=== PATIENT | female | born 1980 | race American Indian/Alaskan Native ===

== ENCOUNTER 2016-11-16 20:36 | Emergency (ER) | payer BC, MEDICAID ==
[2016-11-16 21:42] VITALS: BP 103/65
[2016-11-16 22:22] LABS: Alanine Aminotransferase 11 units/L (7-56); Albumin 4.3 g/dL (3.9-5); Albumin/Globulin Ratio 1.4 %; Alkaline Phosphatase 77 units/L (35-129); Anion Gap 18 mmol/L; BUN/Creatinine Ratio 26.66; Blood Urea Nitrogen 16 mg/dL (7-17); Calcium 8.9 mg/dL (8.4-10.2); Carbon Dioxide 23 mmol/L (22-30); Chloride 105.5 mmol/L (98-107); Glucose 107 mg/dL (65-100); Lipase 40 units/L (13-60); Potassium 3.9 mmol/L (3.6-5.0); Sodium 143 mmol/L (137-145); Total Protein 7.3 g/dL (6.3-8.2)
[2016-11-16 22:41] LABS: Eosinophils % (Auto) 1.8 % (0.0-4.3); Hematocrit 36.1 % (30.3-42.9); Hemoglobin 11.9 gm/dl (10.1-14.3); Mean Corpuscular HGB Conc 33 % (30-34); Mean Corpuscular Hemoglobin 30 pg (28-32); Mean Corpuscular Volume 91 fl (79-97); Platelet Count 289 K/mm3 (140-440); Red Blood Count 3.99 M/mm3 (3.65-5.03); Red Cell Distribution Width 12.6 % (13.2-15.2); White Blood Count 6.3 K/mm3 (4.5-11.0)
[2016-11-17 00:29] LABS: Bilirubin,Urine NEG (Negative); Blood,Urine NEG (Negative); Ketones,Urine TR mg/dL (Negative); Leukocyte Esterase,Urine NEG (Negative); Mucus,Urine FEW /HPF; Nitrite,Urine NEG (Negative); Protein,Urine <15 mg/dL mg/dL (Negative); Urobilinogen,Urine < 2.0 mg/dL (<2.0)
--- NOTE | 2016-11-19 21:48 | ED Elopement Review ---
ED Pt Elopement review - Results review Lab results: Laboratory Tests 11/16/16 11/16/16 11/16/16 21:50 21:50 23:41 WBC 6.3 RBC 3.99 Hgb 11.9 Hct 36.1 MCV 91 MCH 30 MCHC 33 RDW 12.6 L Plt Count 289 Lymph % (Auto) 50.1 H [place] % (Auto) 5.3 Eos % (Auto) 1.8 Baso % (Auto) Auto Cleaner Lymph # 3.1 [place] # 0.3 Eos # 0.1 Baso # 0.1 Seg Neutrophils % 42.0 Seg Neutrophils # 2.6 Sodium 143 Potassium 3.9 Chloride 105.5 Carbon Dioxide 23 Anion Gap 18 BUN 16 Creatinine 0.6 L Estimated GFR > 60 BUN/Creatinine Ratio 26.66 Glucose 107 H Calcium 8.9 Total Bilirubin 0.30 AST 12 ALT 11 Alkaline Phosphatase 77 Total Protein 7.3 Albumin 4.3 Albumin/Globulin Ratio 1.4 Lipase 40 Urine Color Yellow Urine Turbidity Clear Urine pH 5.0 Ur Specific [place] 1.019 Urine Protein <15 mg/dl Urine Glucose (UA) Neg Urine Ketones Tr Urine Blood Neg Urine Nitrite Neg Urine Bilirubin Neg Urine Urobilinogen < 2.0 Ur Leukocyte Esterase Neg Urine WBC (Auto) 2.0 Urine RBC (Auto) 3.0 U Epithel Cells (Auto) 2.0 Urine Mucus Few - Call Back decision Pt Call Back Decision: No action required
== END 2016-11-17 03:32 | disposition left against medical advice (07) ==
LOC: ED 20:36
DX: R10.9 Unspecified abdominal pain (principal); R19.7 Diarrhea, unspecified; R11.0 Nausea; Z53.21 Procedure and treatment not carried out due to patient leaving prior to being seen by health care provider
CPT/HCPCS: 36415; 80053; 81001; 83690; 85025

== ENCOUNTER 2017-12-18 20:28 | Emergency (ER) | payer SELFPAY | END 2017-12-18 21:37 | disposition left against medical advice (07) | LOC: ED 20:28 | DX: M79.605 Pain in left leg (principal); R53.83 Other fatigue; R10.9 Unspecified abdominal pain; Z53.21 Procedure and treatment not carried out due to patient leaving prior to being seen by health care provider ==

== ENCOUNTER 2017-12-19 08:03 | Emergency (ER) | payer SELFPAY ==
[2017-12-19 08:17] VITALS: BP 101/71
[2017-12-19 08:56] LABS: Bilirubin,Urine NEG (Negative); Blood,Urine SM (Negative); Color,Urine Yellow (Yellow); Hyaline Casts,Urine 1 /LPF; Mucus,Urine 2+ /HPF; Protein,Urine <15 mg/dL mg/dL (Negative); Urobilinogen,Urine < 2.0 mg/dL (<2.0)
[2017-12-19 08:57] LABS: HCG Qualitative,Urine Negative (Negative)
--- NOTE | 2017-12-19 09:08 | Emergency Department Report ---
ED Female HPI - General Chief complaint: Urogenital-Female Stated complaint: LFT SIDE PAIN/NAUSEA Time Seen by Provider: 12/19/17 09:07 Source: patient Mode of arrival: Ambulatory Limitations: No Limitations - History of Present Illness Initial comments: This is a 37-year-old female who is not known to this provider previously. The patient presents to the ER with a complaint of nontraumatic left lower quadrant pain which radiates to the back intermittently for over a week. She is defecating multiple times per day, feels nauseous, but has not vomited. She admits to chronic white discharge which is her typical discharge, and not symptomatic. She denies dysuria. She denies vomiting. She denies extremity weakness, bladder or bowel retention/incontinence. She denies hematuria. She has one partner that she is sexually active with, does not currently use barrier protection, and endorses chronic dyspareunia MD Complaint: pelvic pain -: Gradual Location: LLQ Radiation: L flank Severity: mild Quality: cramping Consistency: intermittent Improves with: none Worsens with: none Are you Now?: No Associated Symptoms: vaginal discharge, nausea/vomiting. denies: vaginal bleeding, abdominal pain, fever/chills, headaches, loss of appetite, dysuria, hematuria, rash, seizure, shortness of breath, syncope, weakness - Related Data Sexually active: Yes Previous Rx's Medication Instructions Recorded Last Taken Type Acetaminophen/Codeine [Tylenol #3] 1 tab PO Q6H PRN #30 tab 07/17/15 Unknown Rx Ibuprofen [Motrin 800 MG tab] 800 mg PO Q8HR PRN #30 tablet 07/17/15 Unknown Rx Acetaminophen [Tylenol Arthritis] 650 mg PO Q6HR PRN #30 tablet.er 12/19/17 Unknown Rx Ibuprofen [Motrin] 600 mg PO Q8H PRN #30 tablet 12/19/17 Unknown Rx Ondansetron [Zofran Odt] 4 mg PO Q8HR PRN #20 tab.rapdis 12/19/17 Unknown Rx Allergies Allergy/AdvReac Type Severity Reaction Status Date / Time No Known Allergies Allergy Verified 07/15/15 10:03 ED Review of Systems ROS: Stated complaint: LFT SIDE PAIN/NAUSEA Other details as noted in HPI Constitutional: denies: fever Eyes: denies: eye discharge ENT: denies: epistaxis Respiratory: denies: cough Cardiovascular: denies: chest pain Gastrointestinal: abdominal pain, nausea. denies: vomiting, diarrhea, constipation, hematemesis, hematochezia Genitourinary: discharge, dyspareunia. denies: urgency, dysuria, frequency, hematuria, abnormal menses Musculoskeletal: back pain Skin: denies: lesions Neurological: denies: weakness ED Past Medical Hx - Past Medical History Previous Medical History?: Yes Hx Hypertension: No Hx Congestive Heart Failure: No Hx Diabetes: No Hx Deep Vein Thrombosis: No Hx Renal Disease: No Hx Seizures: No Hx Psychiatric Treatment: Yes (anxiety) Hx Asthma: No Hx HIV: No Additional medical history: Panic attacks, status post thyroidectomy - Surgical History Past Surgical History?: Yes Additional Surgical History: THYROIDECTOMY over 10 yrs ago. tubal ligation - Social History Smoking Status: Never Smoker Substance Use Type: None - Medications Home Medications: Home Medications Medication Instructions Recorded Confirmed Last Taken Type Acetaminophen/Codeine [Tylenol #3] 1 tab PO Q6H PRN #30 tab 07/17/15 Unknown Rx Ibuprofen [Motrin 800 MG tab] 800 mg PO Q8HR PRN #30 tablet 07/17/15 Unknown Rx Acetaminophen [Tylenol Arthritis] 650 mg PO Q6HR PRN #30 tablet.er 12/19/17 Unknown Rx Ibuprofen [Motrin] 600 mg PO Q8H PRN #30 tablet 12/19/17 Unknown Rx Ondansetron [Zofran Odt] 4 mg PO Q8HR PRN #20 tab.rapdis 12/19/17 Unknown Rx ED Physical Exam - General Limitations: No Limitations General appearance: alert, in no apparent distress - Head Head exam: Present: atraumatic, normocephalic - Eye Eye exam: Present: normal appearance, EOMI - ENT ENT exam: Present: normal exam, normal orophraynx, mucous membranes moist, normal external ear exam - Neck Neck exam: Present: normal inspection, full ROM. Absent: tenderness, meningismus - Respiratory Respiratory exam: Present: normal lung sounds bilaterally. Absent: respiratory distress - Cardiovascular Cardiovascular Exam: Present: regular rate, normal rhythm, normal heart sounds. Absent: bradycardia, tachycardia, irregular rhythm, systolic murmur, diastolic murmur, rubs, gallop - GI/Abdominal GI/Abdominal exam: Present: soft, normal bowel sounds. Absent: distended, tenderness, guarding, rebound, rigid, pulsatile mass - External exam: Present: normal external exam. Absent: lesions, lacerations Speculum exam: Present: normal speculum exam. Absent: cervical discharge, vaginal bleeding, foreign body Bi-manual exam: Present: normal bi-manual exam, other (escorted by nurse Zulema Jefferson). Absent: cervical motion tendernes, adnexal tenderness, adnexal mass, uterine enlargement, uterine tenderness - Extremities Exam Extremities exam: Present: normal inspection, full ROM, normal capillary refill , other (2+ pulses noted in the bilateral upper, lower extremities. Compartments soft. No long bony tenderness. The pelvis is stable.). Absent: tenderness, pedal edema, joint swelling, calf tenderness - Back Exam Back exam: Present: normal inspection, full ROM. Absent: tenderness, CVA tenderness (R), paraspinal tenderness, vertebral tenderness - Neurological Exam Neurological exam: Present: alert, oriented X3, CN II-XII intact, normal gait, other (Extraocular movements intact. Tongue midline. No facial droop. Facial sensation intact to light touch in the V1, V2, V3 distribution bilaterally. 5 and 5 strength in 4 extremities.. Sensation is intact to light touch in 4 extremities.). Absent: motor sensory deficit - Psychiatric Psychiatric exam: Present: normal affect, normal mood - Skin Skin exam: Present: warm, dry, intact, normal color. Absent: rash ED Course Vital Signs 12/19/17 08:12 Temperature 98.9 F Pulse Rate 79 Respiratory 18 Rate Blood Pressure 101/71 O2 Sat by Pulse 100 Oximetry ED Medical Decision Making - Lab Data Vital Signs 12/19/17 08:12 Temperature 98.9 F Pulse Rate 79 Respiratory 18 Rate Blood Pressure 101/71 O2 Sat by Pulse 100 Oximetry Lab Results 12/19/17 Range/Units 08:45 Urine Color Yellow (Yellow) Urine Turbidity Clear (Clear) Urine pH 6.0 (5.0-7.0) Ur Specific [place] 1.024 (1.003-1.030) Urine Protein <15 mg/dl (Negative) mg/dL Urine Glucose (UA) Neg (Negative) mg/dL Urine Ketones Neg (Negative) mg/dL Urine Blood Sm (Negative) Urine Nitrite Neg (Negative) Urine Bilirubin Neg (Negative) Urine Urobilinogen < 2.0 (<2.0) mg/dL Ur Leukocyte Esterase Tr (Negative) Urine WBC (Auto) 2.0 (0.0-6.0) /HPF Urine RBC (Auto) 7.0 (0.0-6.0) /HPF U Epithel Cells (Auto) 6.0 (0-13.0) /HPF Hyaline Casts 1 /LPF Urine Mucus 2+ /HPF Urine HCG, Qual Negative (Negative) - Medical Decision Making Differential diagnosis, including not limited to: Acute on chronic pelvic pain, endometriosis, ovarian cyst, pelvic inflammatory disease, constipation Assessment and plan: 37-year-old female with intermittent left lower quadrant abdominal pain. She is nontender, has no CVA tenderness, is nontoxic appearing , and has a benign gynecologic examination. Given her complete lack of tenderness, given that she is currently smiling, laughing, drinking, playing on a cell phone, surgical etiology of abdominal pain is very unlikely in my opinion. This does not appear to be an emergent condition at this time, her pelvic examination is not consistent or suggestive of pelvic inflammatory disease, there is no adnexal tenderness, and therefore the patient does not require an emergent pelvic ultrasound in my opinion. The patient may be managed supportively and symptomatically, she will be discharged with appropriate medication and she can follow up with outpatient gynecology. Critical care attestation.: If time is entered above; I have spent that time in minutes in the direct care of this critically ill patient, excluding procedure time. ED Disposition Clinical Impression: Abdominal pain, left lower quadrant Disposition: DC-01 TO HOME OR SELFCARE Is pt being admited?: No Does the pt Need Aspirin: No Condition: Good Additional Instructions: Cultures were sent today, results will be available in the next 3-5 days. Take pain medication, nausea medication as needed/directed. Have a mobile architect or primary care doctor contact the medical records department to obtain culture results. Follow up with a mobile architect within the next 2 weeks. Return to the ER right away with new pain, worsened pain, migration of pain, change in mental status, chills, lethargy, irritability, projectile vomiting, change in mental status, confusion, inability to tolerate liquid feeds. Prescriptions: Acetaminophen [Tylenol Arthritis] 650 mg PO Q6HR PRN #30 tablet.er PRN Reason: Pain Ibuprofen [Motrin] 600 mg PO Q8H PRN #30 tablet PRN Reason: Pain Ondansetron [Zofran Odt] 4 mg PO Q8HR PRN #20 tab.rapdis PRN Reason: Nausea Referrals: PRIMARY CARE, [Primary Care Provider] - 3-5 Days [facility] [Provider Group] - 3-5 Days [facility] [Provider Group] - 3-5 Days [facility] [Provider Group] - 3-5 Days Forms: Work/School Release Form(ED)
[2017-12-19] MEDS ORDERED: MOTRIN PO ONE (09:30)
[2017-12-19] MEDS ORDERED: ZOFRAN ODT PO ONE (09:30)
== END 2017-12-19 10:02 | disposition home or self-care (01) ==
LOC: ED 08:03
DX: R10.32 Left lower quadrant pain (principal); R11.0 Nausea; N89.8 Other specified noninflammatory disorders of vagina; F41.9 Anxiety disorder, unspecified; E89.0 Postprocedural hypothyroidism; Z98.51 Tubal ligation status
CPT/HCPCS: 81001; 81025; 87210; 87591; Q0162

== ENCOUNTER 2019-01-27 02:26 | Emergency (ER) | payer BC ==
[2019-01-27 02:38] VITALS: BP 103/68
[2019-01-27] MEDS ORDERED: DELTASONE PO STA (05:50)
--- NOTE | 2019-01-27 06:03 | Emergency Department Report ---
ED Headache HPI - General Chief Complaint: Headache Stated Complaint: HEAD PAIN BEHIND RIGHT EAR Time Seen by Provider: 01/27/19 05:32 Source: patient - History of Present Illness Timing/Duration: episodic, other (I initially felt a vague pain around 3 PM on yesterday was continued to progressively worsening to this morning, leading her to come to the emergency department. No visual disturbances. No change in taste. No loss of bowel or bladder. No facial weakness. No loss of sensation.) Quality: moderate Head Injury Location: parietal Recent Head Trauma: no recent headache/trauma Associated Symptoms: other (pain to the left right neck radiating up just behind the mastoid region. No midline tenderness is noted.). denies: fatigue, fever/chills, loss of consciousness, nausea/vomiting, nasal congestion, nasal drainage, seizures, sinus infection, weakness Allergies/Adverse Reactions: Allergies No Known Allergies Allergy (Verified 07/15/15 10:03) Home Medications: Ambulatory Orders Acetaminophen/Codeine [Tylenol #3] 1 tab PO Q6H PRN #30 tab 07/17/15 Ibuprofen [Motrin 800 MG tab] 800 mg PO Q8HR PRN #30 tablet 07/17/15 Acetaminophen [Tylenol Arthritis] 650 mg PO Q6HR PRN #30 tablet.er 12/19/17 Ibuprofen [Motrin] 600 mg PO Q8H PRN #30 tablet 12/19/17 Ondansetron [Zofran Odt] 4 mg PO Q8HR PRN #20 tab.rapdis 12/19/17 Ketorolac [Toradol] 10 mg PO Q6H PRN #15 tablet 01/27/19 methOCARBAMOL [Robaxin] 750 mg PO Q8H PRN #21 tablet 01/27/19 ED Review of Systems ROS: Stated complaint: HEAD PAIN BEHIND RIGHT EAR Other details as noted in HPI ED Past Medical Hx - Past Medical History Previous Medical History?: Yes Hx Hypertension: No Hx Congestive Heart Failure: No Hx Diabetes: No Hx Deep Vein Thrombosis: No Hx Renal Disease: No Hx Seizures: No Hx Psychiatric Treatment: Yes (anxiety) Hx Asthma: No Hx HIV: No Additional medical history: Panic attacks, status post thyroidectomy - Surgical History Past Surgical History?: Yes Additional Surgical History: THYROIDECTOMY over 10 yrs ago. tubal ligation - Social History Smoking Status: Current Every Day Smoker Substance Use Type: Alcohol - Medications Home Medications: Home Medications Medication Instructions Recorded Confirmed Last Taken Type Acetaminophen/Codeine [Tylenol #3] 1 tab PO Q6H PRN #30 tab 07/17/15 Unknown Rx Ibuprofen [Motrin 800 MG tab] 800 mg PO Q8HR PRN #30 tablet 07/17/15 Unknown Rx Acetaminophen [Tylenol Arthritis] 650 mg PO Q6HR PRN #30 tablet.er 12/19/17 Unknown Rx Ibuprofen [Motrin] 600 mg PO Q8H PRN #30 tablet 12/19/17 Unknown Rx Ondansetron [Zofran Odt] 4 mg PO Q8HR PRN #20 tab.rapdis 12/19/17 Unknown Rx Ketorolac [Toradol] 10 mg PO Q6H PRN #15 tablet 01/27/19 Unknown Rx methOCARBAMOL [Robaxin] 750 mg PO Q8H PRN #21 tablet 01/27/19 Unknown Rx ED Physical Exam - General Limitations: No Limitations ED Course Vital Signs 01/27/19 02:37 Temperature 98.6 F Pulse Rate 81 Respiratory 16 Rate Blood Pressure 103/68 O2 Sat by Pulse 100 Oximetry ED Medical Decision Making - Medical Decision Making Current female with right-sided headache radiating up her neck normal ear examination. No signs of any infectious process. No rashes present. No obvious Colles was causing his lancinating pain to the occipital parietal mass and mastoid region of the right side of the hip is full range of motion of the neck with no limitations. May be of neurological originand follow with primary care or neurologist for the virus. Treatment options. She just appears to be in no imminent danger today Critical care attestation.: If time is entered above; I have spent that time in minutes in the direct care of this critically ill patient, excluding procedure time. ED Disposition Clinical Impression: Cephalgia, Neck pain Disposition: DC-01 TO HOME OR SELFCARE Is pt being admited?: No Does the pt Need Aspirin: No Condition: Stable Instructions: Acute Headache (ED), Cervical Sprain (ED), Cervical Radiculopathy (ED) Prescriptions: methOCARBAMOL [Robaxin] 750 mg PO Q8H PRN #21 tablet PRN Reason: Spasms Ketorolac [Toradol] 10 mg PO Q6H PRN #15 tablet PRN Reason: Pain Referrals: PRIMARY CARE, [Primary Care Provider] - 3-5 Days [facility] [Provider Group] - 3-5 Days
== END 2019-01-27 07:17 | disposition home or self-care (01) ==
LOC: ED 02:26
DX: M54.2 Cervicalgia (principal); R51 Headache; F41.0 Panic disorder [episodic paroxysmal anxiety]; E89.0 Postprocedural hypothyroidism; F17.200 Nicotine dependence, unspecified, uncomplicated; Z98.51 Tubal ligation status; Z79.899 Other long term (current) drug therapy
CPT/HCPCS: 99282; J7512